=== PATIENT | female | born 1995 ===

== ENCOUNTER 2020-08-11 18:39 | Inpatient (IN) | payer OTHER ==
[~2020-08-11] VITALS: Ht 149.9 cm; Wt 3.2 kg
[2020-08-11] MEDS ORDERED: PRENATAL TABLE1 EAC3 PO (20:27)
== END 2020-08-15 12:07 | disposition home or self-care (01) | DRG 788 ==
LOC: OB/GYN 18:39 → LDR 18:39 → OB/GYN 08-13 02:05
PROVIDERS: ADMIT Obstetrics & Gynecology; ATTEND Obstetrics & Gynecology
PROC: 4A0HXFZ Measurement of Products of Conception, Cardiac Rhythm, External Approach (ICD-10-PCS; 2020-08-11)
PROC: 10D00Z1 Extraction of Products of Conception, Low, Open Approach (ICD-10-PCS; principal; 2020-08-12 22:00)
DX: O41.03X0 Oligohydramnios, third trimester, not applicable or unspecified (principal); O62.1 Secondary uterine inertia; Z3A.39 39 weeks gestation of pregnancy; Z37.0 Single live birth